=== PATIENT | male | born 1975 | race Caucasian/White ===

== ENCOUNTER 2017-02-16 09:05 | Emergency (ER) | payer MEDICAID ==
[2017-02-16 12:26] LABS: ADD UMIC NO; UR ASCORBIC ACID NEGATIVE (NEGATIVE); UR BILIRUBIN (Dip) NEGATIVE (NEGATIVE); UR BLOOD (Dip) NEGATIVE (NEGATIVE); UR CLARITY CLEAR (CLEAR); UR COLOR YELLOW (YELLOW); UR GLUCOSE (Dip) NEGATIVE (NEGATIVE); UR KETONES (Dip) NEGATIVE (NEGATIVE); UR LEUKOCYTE ESTERASE (Dip) NEGATIVE Leu/ul (NEGATIVE); UR NITRITE (Dip) NEGATIVE (NEGATIVE); UR RBC 1 /HPF (0-5); UR SPECIFIC GRAVITY (Dip) 1.012 (1.003-1.030); UR TOTAL PROTEIN (Dip) NEGATIVE (NEGATIVE); UR UROBILINOGEN (Dip) NEGATIVE (NEGATIVE); UR WBC 0 /HPF (0-5)
[2017-02-16] MEDS: AZITHROMYCIN 250 MG TAB PO (13:35)
[2017-02-16] MEDS: LIDOCAINE 1% (MDV) 20 ML INJ SC (13:35)
[2017-02-16] MEDS: CEFTRIAXONE 250 MG INJ IM (13:35)
== END 2017-02-16 14:09 | disposition home or self-care (01) ==
LOC: FTE 09:05
DX: R30.9 Painful micturition, unspecified (principal)
CPT/HCPCS: 81003; 87591; 96372; 99284-25

== ENCOUNTER 2017-03-10 19:04 | Emergency (ER) | payer MEDICAID ==
[2017-03-10 21:20] LABS: URINE BLOOD (Dip) POC Negative (NEGATIVE); URINE GLUCOSE (Dip) POC Negative (NEGATIVE); URINE KETONES (Dip) POC Negative (NEGATIVE); URINE LEUKOCYTE EST (Dip) POC Negative (NEGATIVE); URINE NITRITE (Dip) POC Negative (NEGATIVE); URINE TOTAL PROTEIN POC Negative (NEGATIVE)
[2017-03-10] MEDS: AZITHROMYCIN 250 MG TAB PO (21:26)
[2017-03-10] MEDS: CEFTRIAXONE 250 MG INJ IM (21:26)
== END 2017-03-10 21:51 | disposition home or self-care (01) ==
LOC: FTE 19:04
DX: R30.0 Dysuria (principal)
CPT/HCPCS: 81003; 87591; 96372; 99284-25